=== PATIENT | male | born 1975 | race Hispanic/Latino ===

== ENCOUNTER 2017-06-27 18:01 | Emergency (ER) | payer BC ==
[2017-06-27 18:28] LABS: Basophils # (Auto) 0.1 K/mm3 (0.0-0.1); Basophils % (Auto) 0.9 % (0.0-1.8); Eosinophils # (Auto) 0.1 K/mm3 (0.0-0.4); Eosinophils % (Auto) 0.9 % (0.0-4.3); Hematocrit 40.6 % (35.5-45.6); Hemoglobin 13.7 gm/dl (11.8-15.2); Lymphocytes % (Auto) 21.3 % (13.4-35.0); Mean Corpuscular HGB Conc 34 % (32-34); Mean Corpuscular Hemoglobin 30 pg (28-32); Mean Corpuscular Volume 87 fl (84-94); Monocytes # (Auto) 0.7 K/mm3 (0.0-0.8); Monocytes % (Auto) 7.4 % (0.0-7.3); Platelet Count 273 K/mm3 (140-440); Red Blood Count 4.64 M/mm3 (3.65-5.03); Red Cell Distribution Width 13.8 % (13.2-15.2)
[2017-06-27 18:44] LABS: Bilirubin,Urine NEG (Negative); Blood,Urine NEG (Negative); Calcium Oxalate Crystals,Urine 1+; Color,Urine Yellow (Yellow); Hyaline Casts,Urine 4 /LPF; Mucus,Urine 2+ /HPF; Protein,Urine <15 mg/dL mg/dL (Negative); Urobilinogen,Urine < 2.0 mg/dL (<2.0)
[2017-06-27 18:51] LABS: Alanine Aminotransferase 35 units/L (7-56); Albumin 4.6 g/dL (3.9-5); BUN/Creatinine Ratio 17; Blood Urea Nitrogen 19 mg/dL (9-20); Calcium 9.2 mg/dL (8.4-10.2); Hemolysis Index 3; Lipase 41 units/L (13-60)
[2017-06-27] MEDS ORDERED: ALUM-MAG HYDROX-SIMETH 200-200-20MG/5ML PO ONE (22:10)
[2017-06-27] MEDS ORDERED: LIDOCAINE VISCOUS 2% PO ONE (22:10)
[2017-06-27] MEDS ORDERED: PEPCID PO ONE (22:10)
[2017-06-27 22:13] VITALS: BP 139/96
--- NOTE | 2017-06-27 22:15 | Emergency Department Report ---
HPI - General Chief Complaint: Abdominal Pain Time Seen by Provider: 06/27/17 22:00 - HPI HPI: Room 39 The patient is a 42-year-old male presenting with a chief complaint of abdominal pain. The patient states for 2.5 weeks she's had a constant pain in the left upper quadrant that worsens after meals. He states approximately 20- 30 minutes after eating he developed nausea and vomiting. Patient denies diarrhea and states that he's been regular. Patient does have subjective fever. The patient gives his pain a score of 8/10. The patient admits he went to [facility] approximately one week ago and had a CT scan and ultrasound performed but left prior to getting the results Location: Abdomen Duration: 2.5 weeks Quality: Pain Severity:8/10 Modifying factors: [see above] Context: [see above] Mode of transportation: [not driving] ED Past Medical Hx - Past Medical History Previous Medical History?: No - Surgical History Additional Surgical History: Knee, shoulder - Family History Family history: no significant - Social History Smoking Status: Never Smoker Substance Use Type: None (denies illicit drug use), Alcohol (occasional) - Medications Home Medications: Home Medications Medication Instructions Recorded Confirmed Last Taken Type HYDROcodone/APAP 5-325 [[place] 1 - 2 each PO Q6HR PRN #14 tablet 06/27/17 Unknown Rx 5/325] Pantoprazole [Protonix] 40 mg PO QDAY #30 tablet 06/27/17 Unknown Rx Promethazine [Phenergan TAB] 25 mg PO Q6HR PRN #20 tab 06/27/17 Unknown Rx Sucralfate [Carafate] 1 gm PO ACHS #300 ml 06/27/17 Unknown Rx ED Review of Systems ROS: Stated complaint: ABDOMINAL PAIN Other details as noted in HPI Constitutional: fever (subjective?) Gastrointestinal: abdominal pain, nausea, vomiting. denies: diarrhea Physical Exam - Physical Exam Vital Signs: Vital Signs 06/27/17 18:04 Temperature 98.7 F Pulse Rate 86 Respiratory 18 Rate Blood Pressure 125/77 O2 Sat by Pulse 98 Oximetry Physical Exam: GENERAL: The patient is well-developed well-nourished male lying on stretcher not appear to be in acute distress. [] HEENT: Normocephalic. Atraumatic. Extraocular motions are intact. Patient has moist mucous membranes. NECK: Supple. Trachea midline CHEST/LUNGS: Clear to auscultation. There is no respiratory distress noted. HEART/CARDIOVASCULAR: Regular. There is no tachycardia. There is no gallop rub or murmur. ABDOMEN: Abdomen is soft, with some discomfort to palpation in the midepigastric /left upper quadrant and right lower quadrant. There is no rebound or guarding. Patient has normal bowel sounds. There is no abdominal distention. SKIN: There is no rash. There is no edema. There is no diaphoresis. NEURO: The patient is awake, alert, and oriented. The patient is cooperative. The patient has normal speech MUSCULOSKELETAL: There is no evidence of acute injury. ED Course Vital Signs 06/27/17 18:04 Temperature 98.7 F Pulse Rate 86 Respiratory 18 Rate Blood Pressure 125/77 O2 Sat by Pulse 98 Oximetry - Consultations Consultation #1: 06/27/17 22:23 [facility] called in records obtained. Patient had CT scan of the abdomen and pelvis performed 06/20/2017 which revealed no acute disease and a right pulmonary nodule. Patient also had an ultrasound performed which revealed no sonographic abnormalities ED Medical Decision Making - Lab Data Result diagrams: 06/27/17 18:19 06/27/17 18:19 Laboratory Tests 06/27/17 06/27/17 06/27/17 18:19 18:19 18:29 WBC 9.6 RBC 4.64 Hgb 13.7 Hct 40.6 MCV 87 MCH 30 MCHC 34 RDW 13.8 Plt Count 273 Lymph % (Auto) 21.3 [place] % (Auto) 7.4 H Eos % (Auto) 0.9 Baso % (Auto) 0.9 Lymph # 2.0 [place] # 0.7 Eos # 0.1 Baso # 0.1 Seg Neutrophils % 69.5 Seg Neutrophils # 6.7 Sodium 144 Potassium 4.1 Chloride 101.9 Carbon Dioxide 30 Anion Gap 16 BUN 19 Creatinine 1.1 Estimated GFR > 60 BUN/Creatinine Ratio 17 Glucose 84 Calcium 9.2 Total Bilirubin 0.50 AST 24 ALT 35 Alkaline Phosphatase 69 Total Protein 7.1 Albumin 4.6 Albumin/Globulin Ratio 1.8 Lipase 41 Urine Color Yellow Urine Turbidity Clear Urine pH 5.0 Ur Specific [place] 1.028 Urine Protein <15 mg/dl Urine Glucose (UA) Neg Urine Ketones Neg Urine Blood Neg Urine Nitrite Neg Urine Bilirubin Neg Urine Urobilinogen < 2.0 Ur Leukocyte Esterase Neg Urine WBC (Auto) 2.0 Urine RBC (Auto) 4.0 U Epithel Cells (Auto) < 1.0 Calcium Oxalate Crystal 1+ Hyaline Casts 4 Urine Mucus 2+ - Differential Diagnosis peptic ulcer disease, gastritis, pancreatitis Critical care attestation.: If time is entered above; I have spent that time in minutes in the direct care of this critically ill patient, excluding procedure time. ED Disposition Clinical Impression: Recurrent left upper quadrant abdominal pain, Nausea & vomiting, Pulmonary nodule Disposition: TO HOME OR SELFCARE Is pt being admited?: No Does the pt Need Aspirin: No Condition: Stable Instructions: Peptic Ulcer (ED), Acute Abdominal Pain (ED) Additional Instructions: Return to the emergency department immediately should you develop worsening symptoms, fever, inability to tolerate food or liquid or any other concerns. 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 Please follow up with him for further evaluation) ADRIANO VELIZ MD [Staff Physician] - 3-5 Days (Dr. Veliz is a research engineer. Please follow-up with her for further evaluation of the pulmonary nodule in the right lung seen on your CT scan at [facility]) Time of Disposition: 22:23
== END 2017-06-27 22:47 | disposition home or self-care (01) ==
LOC: ED 18:01
DX: R91.1 Solitary pulmonary nodule (principal); R10.12 Left upper quadrant pain; R11.2 Nausea with vomiting, unspecified
CPT/HCPCS: 36415; 80053; 81001; 83690; 85025; 99283